=== PATIENT | female | born 1980 | race Caucasian/White ===

== ENCOUNTER 2017-03-19 17:10 | Emergency (ER) | payer OTHER ==
[~2017-03-19] VITALS: Ht 167.6 cm; Wt 61.4 kg
[~2017-03-19 17:10] MED LIST: WEL75 PO
[2017-03-19 17:16] VITALS: BP 128/85; RESP 10; O2SAT 100
[2017-03-19] MEDS ORDERED: Benzoc-Butamben-Tetraca Spray 20 Gm Spray TOPICAL ONE (18:49)
--- NOTE | 2017-03-19 19:41 | ED.REPORT ---
HPI-Ear Pain/Problem/FB Date of Service Mar 19, 2017 ED Provider: Sarthak Sun DO Pt is an otherwise healthy 36 year old female who presents to the ED complaining of intermittent throat discomfort after accidental swallowing a fishbone 3 days ago. Pt denies nausea. She states that she has been swallowing more and "trying to clear her throat". She denies throat pain. Per pt, her discomfort is exacerbated with swallowing. She reports that she is unable to reach far enough down her throat to feel the fishbone with her finger. Nursing Notes Stated Complaint: FISH BONE STUCK IN THROAT Chief Complaint: ENT & Mouth Nursing Notes Reviewed: Yes Allergies: Coded Allergies: Sulfa (Sulfonamide Antibiotics) (Verified Allergy, Unknown, 01/16/13) No Active Prescriptions or Reported Meds General Time Seen by MD: 18:19 Chief Complaint Foreign body Hx Obtained From: Patient Arrived By: Walk-in Onset Occurred: 3 days ago Symptom Duration: Since onset Severity: Current: No pain currently Severity: Maximum: No pain Recent Healthcare: No recent doctor visit, No recent hospitalization Similar Sx Previous: No Past Medical History Past Medical History Denies: Congestive heart failure, Diabetes mellitus, Hypertension Past Surgical History Denies Smoking History Unknown if Ever Smoker Social History Alcohol Use: "Social" Drug Use: Denies drug use Ambulatory Status Independent Review of Systems + Throat discomfort + Increased swallowing Ears / Nose / Throat: Denies: Throat pain Complete sys rev & neg: except as marked. Physical Exam Initial Vital Signs Vital Signs (First) Date Time Temp Pulse Resp B/P Pulse Ox O2 Delivery O2 Flow Rate FiO2 03/19/17 17:16 37.2 82 10 128/85 100 Room Air Initial VS: Reviewed Head / Eyes: Atraumatic, Normocephalic Neck: Supple, Full range of motion Respiratory: Breath sounds normal, Clear to auscultation, No respiratory distress Cardiovascular: Regular rate & rhythm, Heart sounds normal, Intact distal pulses Abdomen / GI: Soft, Non-tender Extremities: Vascular intact, Neuro intact Skin: Warm, Dry, No cyanosis Neurologic: Alert, Oriented, Nonfocal Psychiatric: Mood/affect normal, Behavior normal General/Constitutional: Awake, Alert, Cooperative ENT: Atraumatic, Airway patent, Mucous membranes moist, Pharynx NL No visualized foreign body with direct visualization/use of tongue depressor, Mallampati 4 Interpretation & Diagnostics X-ray Neck Soft Tissue - IMPRESSION: No radiopaque foreign bodies. Dictated by: Pepe Paz M.D. on 03/19/2017 at 20:42 Procedures Laryngoscopy: Time: 19:15 Consent: Patient's consent Performed by: ED physician Findings: No foreign body visualized Re-Eval/Medical Decision Med Decision/Clinical Course 36-year-old otherwise healthy female presents with throat discomfort for the past 3 days, noting that she ate salmon for dinner that evening, and later noticed some bones in the meat. She believes that her discomfort is likely related to a fish bone stuck in her throat. I was unable to visualize it on routine physical exam and patient had a Mallampati score of 1. I was able to obtain a fiberoptic laryngoscope from anesthesia and after lidocaine 4% atomized was applied to the back of the throat and nasal passages, I attempted to obtain direct visualization of the supraglottic pharynx. Patient was unable to tolerate passing the scope nasally so using a bite block to protect scope I was able to position the scope and have good visualization of the posterior oropharynx and supraglottic areas. The scope was passed to the level of the vocal cords/ piriform recesses, just past and posterior to the arytenoids and all of the recesses and folds were examined in detail. There were no abnormalities/foreign body/fish bone appreciated. Given this I elected to perform an x-ray of the soft tissues of the neck which was unrevealing for a foreign body. I advised the patient to follow up with ENT should her symptoms persist after her vacation which she leaves on in the morning. Patient understands and agrees with the plan. Source of Hx: Old records Re-Evaluation/Progress #1: Time of Eval: 19:15 Re-Evaluation/Progress Note: Pt rechecked. Performed laryngoscopy with pt's consent. All questions addressed. Re-Evaluation/Progress #2: Time of Eval: 20:59 Re-Evaluation/Progress Note: Pt rechecked. Informed pt of plan for discharge. Pt understands and agrees with plan for discharge. F/U instructions and RTER warnings given. All questions addressed. Counseled Regarding: Diagnosis, Need for follow-up, When/why to return to ED Discharge & Departure Primary Impression: Throat pain Ruled Out: Foreign body Disposition: Home Discharge Condition All VS Reviewed: Yes Condition: Stable Additional Instructions: Thank you for entrusting us with your care. No fishbone or foreign body was visualized today by flexible fiberoptic scope or seen on xray. Please follow up with ENT, Dr. Laureano after your vacation if your symptoms are not improving. Return to the ED for new or worsening symptoms. Enjoy the [place]! . Referrals: Marisol Law (PCP) Long Jarvis MD (Family) Gerard Laureano MDibdeanne Attestation Portions of this note were transcribed by Nissa Frausto. I, Dr. Sun personally performed the history, physical exam and medical decision-making; I reviewed and confirmed the accuracy of the information in the transcribed note. Signed by: Radha Guillen, 03/19/17. copies to: Long Jarvis MD; Marisol Law Gary R DO Mar 19, 2017 19:41 Nissa Ying Mar 19, 2017 20:56
--- NOTE | 2017-03-19 20:45 | DRSVH ---
PROCEDURE: X-RAY NECK SOFT TISSUE ([id number]) INDICATIONS: fish bone in throat, unable to directly visualize TECHNIQUE: 2 views of the neck were acquired. COMPARISON: None. FINDINGS: Airway: The airway appears patent. Soft tissues: Prevertebral soft tissues are normal in thickness. The epiglottis and aryepiglottic f olds appear normal. No soft tissue gas. Bones: No acute fractures. Mild reversal of the normal cervical lordosis minimal retrolisthesis of C5 -6. Otherwise normal cervical vertebral body alignment.. IMPRESSION: No radiopaque foreign bodies. Dictated by: Pepe Paz M.D. on 03/19/2017 at 20:42 Approved by: Pepe Paz M.D. on 03/19/2017 at 20:43
[2017-03-19 21:12] VITALS: BP 112/73; PULSE 77; RESP 16; O2SAT 99
[2017-03-19 21:15] VITALS: BP 112/73; PULSE 77; RESP 16; O2SAT 99
== END 2017-03-19 21:16 | disposition home or self-care (01) ==
LOC: SED 17:10
DX: R07.0 Pain in throat (principal); Z88.2 Allergy status to sulfonamides